=== PATIENT | female | born 1985 ===

== ENCOUNTER 2019-04-20 18:51 | Emergency (ER) | payer MEDICAID ==
[2019-04-20 19:27] VITALS: BP 127/72; PULSE 81; RESP 18; TEMP 98.9; O2SAT 99
--- NOTE | 2019-04-20 20:49 | ED PDOC ---
HPI: Dental Pain/Injury Time Seen by Provider: 04/20/19 19:15 Chief Complaint (Nursing): Dental Pain Chief Complaint (Provider): Left Sided Facial / Dental Pain History Per: Patient History/Exam Limitations: no limitations Onset/Duration Of Symptoms: Days (x5) Current Symptoms Are (Timing): Still Present Additional Complaint(s): 34 year old female presents to the ED for evaluation of left sided facial swelling and dental pain for the past five days that initially began behind her left lower molars. Patient states she went to an urgent care yesterday for the symptoms where she was given Clindamycin. She notes that while she has been on it for 24 hours already, she does not feel improved, and rather feels as if it is getting worse with the pain now radiating to the roof of her mouth and up into her head. Reports feeling feverish at home, but did not take her temperature. Of note, patient contacted her dentist but could not obtain an appointment until 05/11, so she came to ED for concern over infection. Past Medical History Reviewed: Historical Data, Nursing Documentation, Vital Signs Vital Signs: Last Vital Signs Temp 98.9 F 04/20/19 19:20 Pulse 81 04/20/19 19:20 Resp 18 04/20/19 19:20 BP 127/72 04/20/19 19:20 Pulse Ox 99 04/20/19 19:20 Primary Care Provider: Bisi Tabares - Medical History PMH: No Chronic Diseases - Surgical History Surgical History: No Surg Hx - Family History Family History: States: Unknown Family Hx - Social History Current smoker - smoking cessation education provided: No Alcohol: None Drugs: Denies - Allergies Allergies/Adverse Reactions: Allergies Allergy/AdvReac Type Severity Reaction Status Date / Time Penicillins Allergy RASH Verified 04/20/19 19:33 piperacillin [From Zosyn] Allergy RASH Verified 04/20/19 19:33 tazobactam [From Zosyn] Allergy RASH Verified 04/20/19 19:33 Review of Systems ROS Statement: Except As Marked, All Systems Reviewed And Found Negative Constitutional: Positive for: Fever (subjective) ENT: Positive for: Mouth Pain (left sided jaw pain radiating to head and left lower molar pain radiating to roof of mouth) Physical Exam - Reviewed Nursing Documentation Reviewed: Yes Vital Signs Reviewed: Yes - Physical Exam Appears: Positive for: No Acute Distress Head Exam: Positive for: ATRAUMATIC Skin: Positive for: Normal Color, Warm Eye Exam: Positive for: Normal appearance ENT: Positive for: Other (mild swelling to left jaw line; swelling of upper inner gum line with no discrete abscess formation visualized; dental pain to left upper and lower teeth with percussion) Neck: Positive for: Normal Neurological/Psych: Positive for: Awake, Alert, Oriented - ECG O2 Sat by Pulse Oximetry: 99 (RA) Pulse Ox Interpretation: Normal Medical Decision Making Medical Decision Making: Time: 2001 Initial Impression: dental pain, facial swelling Initial Plan: --CT Maxillofacial without contrast 2100 CT FINDINGS: BONES: No acute fracture or aggressive appearing osseous lesion. The mandible is intact. The study is technically limited due to streak artifact from dental fillings. SOFT TISSUES: The soft tissues are unremarkable. SINUSES: The sinuses are clear. ORBITS: The orbits are normal. No retrobulbar hematoma or mass. IMPRESSION: No definite acute osseous abnormality. Technically limited due to streak artifact from dental fillings. Clinical correlation and correlation with the dental radiographs recommended. Scribe Attestation: Documented by Angeline Lopez, acting as a scribe for Jacquie Walker PA-C Provider Scribe Attestation: All medical record entries made by the Scribe were at my direction and personally dictated by me. I have reviewed the chart and agree that the record accurately reflects my personal performance of the history, physical exam, medical decision making, and the department course for this patient. I have also personally directed, reviewed, and agree with the discharge instructions and disposition. Disposition - Clinical Impression Clinical Impression: Pain, dental - Patient ED Disposition Is Patient to be Admitted: No Counseled Patient/Family Regarding: Diagnosis, Need For Followup - Disposition Disposition: Routine/Home Disposition Time: 21:11 Condition: GOOD Additional Instructions: Continue antibiotics as prescribed. Instructions: Dental Pain Forms: [facility] (Azeri)
--- NOTE | 2019-04-21 09:19 | CT ---
Date of service: 04/20/2019 PROCEDURE: CT MAXILLOFACIAL BONES WITHOUT CONTRAST HISTORY: left sided facial swelling, pain, dental pain COMPARISON: None available. TECHNIQUE: Contiguous axial CT images of the maxillofacial bones were obtained. Coronal and sagittal reformats were generated. Radiation dose: Total exam DLP = 726.1 mGy-cm. This CT exam was performed using one or more of the following dose reduction techniques: Automated exposure control, adjustment of the mA and/or kV according to patient size, and/or use of iterative reconstruction technique. FINDINGS: NASAL BONES: Unremarkable. ORBITS: Unremarkable. PARANASAL SINUSES/ MASTOIDS: Clear. MAXILLA: Unremarkable. MANDIBLE/ TEMPOROMANDIBULAR JOINTS: Unremarkable. SKULL BASE: Unremarkable. TEMPORAL BONES: Middle ears and mastoid grossly unremarkable. OTHER FINDINGS: None. IMPRESSION: No evidence of facial fracture. Unremarkable examination. The preliminary findings for this examination were reported by [facility] at 9 p.m. on 04/20/2019. There is concurrence of this report with the preliminary findings.
== END 2019-04-20 21:27 | disposition home or self-care (01) ==
LOC: H.ER 18:51
DX: K08.89 Other specified disorders of teeth and supporting structures (principal); Z88.0 Allergy status to penicillin